=== PATIENT | female | born 1995 | race Two or more races ===

== ENCOUNTER 2025-09-16 05:05 | Emergency (ER) | payer MEDICAID, SELFPAY ==
[2025-09-16 05:08] VITALS: BMI 25.8
[2025-09-16 05:11] VITALS: BP 138/83; PULSE 80; RESP 18; TEMP 36.4; O2SAT 98
--- NOTE | 2025-09-16 05:13 | XR_ITS ---
Examination: Abdomen sonogram, Limited Date and time of exam: 09/16/2025 at 5:24 a.m. CLINICAL HISTORY: Epigastric pain with nausea and vomiting began at 1:00 a.m. today Technique: Real-time frausto scale transabdominal sonographic images of the upper abdomen obtained. Findings: In the upper portion of the body of the gallbladder near the cystic duct, there is a large 1.4 cm diameter gallstone with distal acoustic shadowing. There are multiple other slightly smaller gallstones, also creating distal acoustic shadowing. There is a moderate amount of echogenic biliary sludge noted within the gallbladder lumen. The gallbladder wall appears essentially normal. It measures 0.36 cm. There is normal directional color flow within the portal veins in the hilum of the liver and within the hepatic veins. The main common bile duct measures 0.42 cm which is within normal limits. The head and mid body of the pancreas are moderately well visualized and appear unremarkable. The liver is normal in size and in echogenicity. No focal lesions are seen. The gastric antrum appears sonographically normal. Several images of the right kidney show no abnormalities, there may be a duplicated renal collecting system although a detailed sonographic evaluation. IMPRESSION: 1. Multiple gallstones noted in the gallbladder, please see above, these create distal acoustic shadowing indicating that they are most probably calcified gallbladder wall appears normal as does the central bile duct. 2. The size and the diffuse echogenic appearance of the liver are normal. 3. No other abnormalities are noted on this exam
--- NOTE | 2025-09-16 05:15 | PD.EDRME ---
Rapid Medical Screening Exam RME Arrival date/time: 09/16/25 05:05 This is a case of 60-year-old female with history of gallstones came into the emergency room due to epigastric and right upper quadrant pain with nausea vomiting today persistence of the symptoms this patient decided to sought consult here in the emergency room Chief Complaint: Abdominal Pain Time Seen by Provider: 09/16/25 05:13 Vital signs: Vital Signs Temperature 97.5 F 09/16/25 05:11 Pulse Rate 80 09/16/25 05:11 Respiratory Rate 18 09/16/25 05:11 Blood Pressure 138/83 H 09/16/25 05:11 Pulse Oximetry (%) 98 09/16/25 05:11 Oxygen Delivery Method Room Air 09/16/25 05:11 Exam: Moderate tenderness epigastric and right upper quadrant no guarding no rebound no rigidity Clinical Impression: Abdominal pain
--- NOTE | 2025-09-16 05:52 | PRELIM_ITS ---
Gallbladder ultrasound. September 16, 2025 0523 hours Clinical history: pain Findings: The visualized liver is normal in echogenicity without mass or ductal dilatation. The main portal vein is patent and demonstrates hepatopetal flow.Multiple calculi are noted within the gallbladder, with mild gallbladder wall thickening, pericholecystic fluid.The common duct is normal in caliber at 4mm.The pancreas is grossly unremarkable.The inferior vena cava is patent. Impression: Findings suggestive of acute calculous cholecystitis. Recommend clinical correlation andfollow-up with HIDA scan, if clinically indicated. Report Electronically Signed By: Kee Hargrove 09/16/2025 5:51:19 AM [EST]
[2025-09-16 06:00] LABS: Basophils # (Auto) 0.1 Thou/mm3 (0.0-0.2); Basophils % (Auto) 1 % (0-2.5); Eosinophils # (Auto) 0.2 Thou/mm3 (0.0-0.5); Eosinophils % (Auto) 1 % (0-10); Hematocrit 37.1 % (36.0-46.0); Hemoglobin 12.3 g/dL (12.0-16.0); Immature Granulocytes Auto 0.03 Thou/mm3 (0.00-0.00); Lymphocytes # (Auto) 1.8 Thou/mm3 (1.0-4.8); Lymphocytes % (Auto) 14 % (10-50); Mean Corpuscular HGB Conc 33.2 g/dl (31.0-37.0); Mean Corpuscular Hemoglobin 28.1 pg (25.0-35.0); Mean Corpuscular Volume 85 fL (80-100); Monocytes # (Auto) 0.8 Thou/mm3 (0.0-0.8); Monocytes % (Auto) 6 % (0-12); Neutrophils # (Auto) 9.6 Thou/mm3 (1.8-7.7); Neutrophils % (Auto) 77 % (37-80); Nucleated Red Blood Cell # 0.00 Thou/mm3 (0.00-0.00); Nucleated Red Blood Cell % 0 /100 WBC (0); Platelet Count 376 Thou/mm3 (140-440); RDW Standard Deviation 43.8 fL (36.4-46.3); Red Blood Count 4.38 Miln/mm3 (4.00-5.20); White Blood Count 12.5 Thou/mm3 (3.6-11.0)
[2025-09-16 06:34] LABS: Alanine Aminotransferase 13 U/L (10-49); Albumin, Serum 4.5 gm/dL (3.5-5.0); Albumin/Globulin Ratio 1.6 (1.2-2.2); Alkaline Phosphatase 61 U/L (46-116); Anion Gap 11 (7-16); Aspartate Amino Transferase 16 U/L (0-34); BUN/Creatinine Ratio 14 Ratio (12-20); Bilirubin,Total 0.5 mg/dL (0.3-1.2); Blood Urea Nitrogen 10 mg/dL (9-23); Calcium 9.4 mg/dL (8.3-10.6); Calcium (Corrected) 9.4 mg/dL (8.5-10.1); Carbon Dioxide 26.6 mMol/L (20.0-31.0); Chloride 108 mMol/L (98-107); Creatinine (Component) 0.7 mg/dL (0.6-1.3); Estimated Creatinine Clearance 121.0 mL/min (>60); Globulin 2.9 gm/dL (2.3-3.5); Glucose 141 mg/dL (74-106); Lipase 31 U/L (12-53); Osmolality,Calculated 291 (275-295); Potassium 3.5 mMol/L (3.4-5.1); Sodium 146 mMol/L (136-145); Total Protein 7.4 gm/dL (5.7-8.2); eGFR > 60 See Note
[2025-09-16 08:01] LABS: Collection Type, Urine Clean Catch; RBC,Urine 0 /hpf (0-3); WBC,Urine 0 /hpf (0-5)
--- NOTE | 2025-09-16 08:08 | PD.EDABDPN ---
ED Abdominal Pain RME/HPI General Chief Complaint: Abdominal Pain Stated complaint: ABD PAIN AND VOMITING Time seen by provider: 09/16/25 05:13 Arrival date/time: 09/16/25 05:05 RME / HPI RME / HPI narrative: 09/16/25 05:05 This is a case of 60-year-old female with history of gallstones came into the emergency room due to epigastric and right upper quadrant pain with nausea vomiting today persistence of the symptoms this patient decided to sought consult here in the emergency room DR. TAYLOR MAIN ED EVALUATION: 30 year old female with known history of gallstones otherwise no other stated medical hx reported presents to the ED for evaluation of epigastric and right upper quadrant abdominal pain beginning this morning. Described as aching cramping in sensation, rating 10/10 in severity. Accompanied by nausea and vomiting. Reports pain today is similar to previous gallbladder attacks. No other associated symptoms or complaints reported. Denies fevers, chills, sweats, diarrhea, constipation, or urinary symptoms. Exam: Moderate tenderness epigastric and right upper quadrant no guarding no rebound no rigidity Impression: Abdominal pain Related Data Previous Rx's ?Medication ?Instructions ?Recorded acetaminophen 325 mg capsule 650 mg (2 x 325 mg) PO Q6H PRN 06/07/20 pain #30 caps cephalexin 500 mg capsule (Keflex) 500 mg PO BID #6 caps 06/07/20 dicyclomine 20 mg tablet 20 mg PO QID PRN abdominal pain 09/16/25 #20 tabs ondansetron 4 mg disintegrating 4 mg PO Q6H PRN nausea and 09/16/25 tablet vomiting #20 tabs Allergies Allergy/AdvReac Type Severity Reaction Status Date / Time No Known Allergies Allergy Verified 09/16/25 05:06 Review of Systems Review of Systems Systems Reviewed: All systems reviewed, normal except as documented Past Medical History Surgical History SURGICAL: Negative Section Social History SMOKING STATUS: Never smoker ED Exam Narrative Physical exam: Generally patient is alert and in no obvious distress, heart regular rate and rhythm, lungs clear to auscultation equal bilaterally, abdomen soft bowel sounds present nondistended mild right upper quadrant abdominal tenderness without rebound or Segura sign Course Quality Measures none Orders Category Date Time Status US gall bladder Stat Exams 09/16/25 05:13 Completed CBC Stat Lab 09/16/25 05:38 Completed Comprehensive Metabolic Panel Stat Lab 09/16/25 05:38 Completed HCG Qualitative,Urine Stat Lab 09/16/25 07:55 Received Lipase Stat Lab 09/16/25 05:38 Completed Urinalysis Stat Lab 09/16/25 07:55 Received Morphine* Inj Med 09/16/25 05:14 Discontinued 4 mg IVP X1 ONE Ondansetron Inj [Zofran Inj] Med 09/16/25 05:13 Discontinued 4 mg IVP X1 ONE Pantoprazole Inj [Protonix Inj] Med 09/16/25 05:14 Discontinued 40 mg IVP X1 ONE Sodium Chloride 0.9% 1000 ml [Ns] 1,000 ml Med 09/16/25 05:14 Discontinued IV 999 mls/hr Vital Signs Vital signs: Vital Signs Temperature 97.5 F 09/16/25 05:11 Pulse Rate 80 09/16/25 05:11 Respiratory Rate 18 09/16/25 05:11 Blood Pressure 138/83 H 09/16/25 05:11 Pulse Oximetry (%) 98 09/16/25 05:11 Oxygen Delivery Method Room Air 09/16/25 05:11 Pulse ox is 98% on room air which is adequate. Abdominal Pain MDM MDM Narrative MDM Narrative:: I interpreted all labs. LFTs and lipase were normal. White count was 12,000. No fever. Abdominal exam was quite benign. Gallbladder ultrasound showed evidence for gallstones and sludge. Gallbladder wall was 4 mm. No pericholecystic fluid. Common bile duct was normal. No stones seen within the common bile duct. Patient does not have an exam compatible with choledocholithiasis or cholecystitis. Patient was counseled on the need to restrict her diet. Bentyl and Zofran as prescribed. Avoid hot spicy greasy fatty foods. Follow-up with her doctor. Return to ER as needed or if condition worsens. Patient data External records reviewed:: [facility] previous records Clinical information provided by:: patient Social determinants that could affect healthcare access:: none Patient has the following chronic illnesses:: Gallstones How is presenting disease/condition affected by chronic disease/condition?: exacerbated by Evaluation data The following diagnostics were reviewed and interpreted by me:: lab results and radiology exam(s) Lab and/or radiology exams considered but not ordered:: None Interpretation Summary: See above Medications / Prescriptions Medications or Prescriptions considered but not ordered:: None Medication administrations:: Medication Administration History Discontinued Medications Sodium Chloride (Ns) 1,000 mls @ 999 mls/hr IV .Q1H1M ONE Stop: 09/16/25 06:14 Morphine Sulfate (Morphine Sulf Inj 4 Mg/Ml Vial) 4 mg IVP X1 ONE Stop: 09/16/25 05:15 Ondansetron HCl (Ondansetron Inj 2 Mg/Ml Inj 2 Ml) 4 mg IVP X1 ONE; Protocol Stop: 09/16/25 05:14 Pantoprazole Sodium (Pantoprazole Inj 40 Mg Vial) 40 mg IVP X1 ONE Stop: 09/16/25 05:15 See above Consultations Consultation(s) initiated? (list below): No Diagnosis Differential diagnosis abdominal pain: abdominal pain, calculus of kidney and other (gallstones, cholecystitis ) Most likely diagnosis given after review of the tests above:: none Admission Indicated Admission indicated?: not indicated Admission Request Was there a request for admission?: No Disposition Plan Disposition Plan: Discharge Discharge Attestation Discharge Attestation: The patient and all family members were given an opportunity to ask questions and understood the discharge instructions. Discharge instructions specifically effects, indications for sooner follow up or return to the emergency department, and the expected course of current diagnosis. Patient condition: Stable Discharge Plan Plan Patient Disposition: HOME (Self Care) Prescriptions/Referrals Prescriptions/Med Rec: New dicyclomine 20 mg tablet 20 mg PO QID PRN (Reason: abdominal pain) Qty: 20 0RF ondansetron 4 mg tablet,disintegrating 4 mg PO Q6H PRN (Reason: nausea and vomiting) Qty: 20 0RF No Action acetaminophen 325 mg capsule 650 mg PO Q6H PRN (Reason: pain) Qty: 30 0RF cephalexin [Keflex] 500 mg capsule 500 mg PO BID Qty: 6 0RF Referrals: No Primary/Family,Physician [Primary Care Provider] - In 1 week Problem List Clinical Impression: Cholelithiasis Patient/Caregiver Discharge Instructions Print Language: Dominican Stand Alone Forms: Marlene Award Info., Patient Portal Info Letter
[2025-09-16 08:19] LABS: Amorphous Crystals,Urine Present (Absent); Bilirubin,Urine Negative (Negative); Blood,Urine Negative (Negative); Color,Urine Yellow (Lt Yel-Yel); Glucose, Urine Negative (Negative); Ketones,Urine 1+ (Negative); Leukocyte Esterase,Urine Negative (Negative); Nitrite,Urine Negative (Negative); PH,Urine 7.0 (5.0-7.0); Protein,Urine Negative (Neg - Trace); Specific Gravity,Urine 1.017 (1.001-1.035); Squamous Epithelial Cell,Urine 2 /hpf (0-5); Urobilinogen,Urine Negative mg/dL (0.0-1.0)
[2025-09-16 08:20] LABS: Clarity,Urine Cloudy (Clear/Hazy)
[2025-09-16 08:21] LABS: HCG Qualitative,Urine Negative
[2025-09-16 08:33] VITALS: BP 101/67; PULSE 52; RESP 17; TEMP 36.8; O2SAT 99
[2025-09-16] MEDS: SODIUM CHLORIDE 0.9% 1000 ML 1,000 ML 999 ML IV (08:41)
[2025-09-16] MEDS: ONDANSETRON INJ 2 MG/ML INJ 2 ML 4 MG IVP (08:42)
[2025-09-16 09:40] VITALS: PULSE 85; RESP 18; TEMP 36.8; O2SAT 100
== END 2025-09-16 09:41 | disposition home or self-care (01) ==
PROVIDERS: Nurse Practitioner Family; Emergency Provider Emergency Medicine
DX: K80.20 Calculus of gallbladder without cholecystitis without obstruction (principal)
CPT/HCPCS: 36415; 76705; 80053; 81001; 81025; 83690; 85025; 96361; 96374; 96375; 99284; J2405; J2470; J7030